=== PATIENT | male | born 1965 | race Caucasian/White ===

== ENCOUNTER → 2016-12-07 | Emergency (ER) | payer OTHER ==
[~2016-12-07] VITALS: Ht 177.8 cm; Wt 87.0 kg
[~2016-12-07] MED LIST: AMITRIPTYLINE H50 MG PO; ATIVAN1 MG PO; BACTRIM,SEPT1 TABLET PO; BUSPAR10 MG PO; CARISOPRODOL350 MG PO; DECADRON2 MG PO; DESYREL 150 MG150 MG PO; DEXAMETHASONE2 MG PO; DILAUDID2 MG PO; DIVALPROEX SOD500 MG PO; ELAVIL50 MG PO; FLOVENT DISKUS1 DIS1 IH; GABAPENTIN300 MG PO; HYDROXYZINE PAM50 MG PO; KLONOPIN1 MG PO; LINEZOLID600 MG PO; METHADONE10 MG PO; NEURONTIN600 MG PO; OXYCODONE HCL5 MG PO; PERCOCET 5/31 TABLET PO; PREDNISONE10 MG PO; PREDNISONE20 MG PO; PROMETHAZINE HC25 M1 PO; QUETIAPINE FUM200 MG PO; SANTYL30 GM TP; SEREVENT DISKU50 MCG IH; SEROQUEL300 MG PO; SERTRALINE HCL100 MG PO; SOMA250 MG PO; SULINDAC200 MG PO; TIZANIDINE HCL2 M1 PO; TRAZODONE HCL150 MG PO; VICODIN HP 10-1 EACH PO; VISTARIL25 MG PO; XANAX0.5 MG PO; ZOLOFT100 MG PO; amitriptyline; hydrochlorothiazide
[2016-12-07 16:02] VITALS: BP 148/88
== END | disposition left against medical advice (07) ==
LOC: EME 14:17
DX: T65.91XA Toxic effect of unspecified substance, accidental (unintentional), initial encounter (principal); R41.82 Altered mental status, unspecified; J44.9 Chronic obstructive pulmonary disease, unspecified; I25.2 Old myocardial infarction; F32.9 Major depressive disorder, single episode, unspecified; Z87.891 Personal history of nicotine dependence